=== PATIENT | female | born 1995 | race African-American/Black ===

== ENCOUNTER 2023-10-10 20:06 | Outpatient (CLI) | payer OTHER ==
[~2023-10-10] VITALS: Ht 170.2 cm; Wt 96.8 kg
--- NOTE | 2023-10-10 20:20 | NUR ---
PT PRESENTED TO L&D WITH C/O LEAKING FLUID TODAY ONHER PANTIES. SHE HAD A SPOT ABOUT THE SIZE OF A QUARTER. DENIES CONTRACTIONS OR BLEEDING. PT HAS JUST MOVED HERE AND HAS NOT SEEN A DOCTOR HERE YET BUT SHE HAS AN APPT WITH [facility] ON THRUSDAY AT 10 AM. MONITORS PLACED ON ABD. NO FLUID NOTED ON PERINEUM. NITRAZINE SWAB NEG. PT HAS HX OF PLACENTA PREVIA THAT HAS RESOLVED. HX OF 28 STAT C/S FOR DISTRESS AND PRE-E. VS STABLE. SVE CL/TK/HIGH.
[2023-10-10 21:20] VITALS: TEMP 98.1
[2023-10-10 21:25] VITALS: BP 114/73; PULSE 75; TEMP 98.1
== END 2023-10-10 21:35 | disposition home or self-care (01) ==
LOC: LDRO 20:06
DX: O42.92 Full-term premature rupture of membranes, unspecified as to length of time between rupture and onset of labor (principal); Z3A.37 37 weeks gestation of pregnancy

== ENCOUNTER 2023-10-26 06:27 | Inpatient (IN) | payer OTHER ==
[~2023-10-26] VITALS: Ht 170.2 cm; Wt 104.5 kg
[2023-10-26] VITALS (44 sets, daily range): BP systolic 86–149; BP diastolic 59–99; PULSE 49–87; TEMP 97.8–98.2
--- NOTE | 2023-10-26 06:35 | NUR ---
PT OREINTED TO THE ROOM AND CHANGED INTO GOWN. PT PLACED ON MONITORS. FHT CATAGORY 1. VS WNL. PT DENIES LOF, CX OR VB. PT IS FEELING REGULAR MOVEMENT.
[2023-10-26] MEDS ORDERED: LR 1,000 ML IV SCH (06:45)
[2023-10-26] MEDS ORDERED: LR & Oxytocin 500 ML IV SCH (06:45)
[2023-10-26 07:18] LABS: BASO % 0.7 % (0.0-2.0); EOS % 0.4 % (0.0-4.0); GRAN # 2.6 K/mm3 (1.4-6.5); GRAN % 57.1 % (42.2-75.2); HEMOGLOBIN 12.3 g/dl (12.5-16.0); LYMPH # 1.5 K/mm3 (1.2-3.4); LYMPH % 33.5 % (20.0-51.0); MEAN CELL VOLUME 86 fl (80.0-100.0); MEAN CORPUSCULAR HEMOGLOBIN 30 pg (27-31); MEAN CORPUSCULAR HGB CONC 35 g/dl (33.0-37.0); MEAN PLATELET VOLUME 10.5 fl (7.4-10.4); MONO # 0.4 K/mm3 (0.1-0.6); MONO % 8.1 % (1.7-9.3); PLATELET COUNT 218 K/mm3 (130-400); RED BLOOD COUNT 4.13 M/mm3 (4.10-5.30); REDCELL DISTRIBUTION WIDTH-CV 14.4 % (11.5-14.5)
[2023-10-26 07:19] LABS: HEMATOCRIT 35.4 % (37.0-47.0)
[2023-10-26] MEDS ORDERED: PRENATAL TABLET PO (07:19)
--- NOTE | 2023-10-26 07:37 | NUR ---
DR LOMBARDO ON UNIT AND AT BEDSIDE. SVE 2/-2. HEAD WELL APPLIED TO CERVIX. AROM AT 0740, CLEAR FLUID NOTED. DR LOMBARDO WANTS PIT INCREASED EVERY 20 MIN. BG Q2 HRS. DISCUSSED WITH PT THE RISKS OF TOLAC. PT VERBALLY AGREES TO RISKS. DISCUSSED PLACING A DRY EPIDURAL SO THAT IT WOULD BE ACCESSABLE IN THE CASE OF AN EMERGENCY. PT AGREES TO HAVE EPIDURAL PLACED. PT DISSCUSES SIDE LYING PUSHING AND DELAYED CORD CLAMPING WITH DR LOMBARDO. DR LOMBARDO AGREES TO SIDE LYING PUSHING AND 5 MINUTES OF DELAYED CORD CLAMPING LONG BABY IS STABLE AT .
--- NOTE | 2023-10-26 07:49 | NUR ---
LIANET CALLED FOR EPIDURAL FOR TOLAC. RADHA WANTS A CALL BACK WHEN PITOCIN IS STARTED AND PT IS HAVING CX.
--- NOTE | 2023-10-26 09:32 | NUR ---
CALLED RADHA BACK. PT IS HAVING CX NOW. THEY ARE NOT VERY STRONG AT THIS POINT. LIANET SAID THAT SHE WOULD HEAD THIS WAY.
--- NOTE | 2023-10-26 10:57 | NUR ---
PT HAVING EPIDURAL PLACED DRY FOR TOLAC. 1048- LIANET AT BEDSIDE TO PLACE EPIDURAL CATHETER. PT DECIDED AT THIS TIME THAT SHE WANTED TO GO AHEAD AND HAVE THE EPIDURAL DOSED FOR PAIN MANAGEMENT. PT WAS SEATED ON THE SIDE OF THE BED. O2 AND BP MONITORS ON. 1057- SINGLE SHOT. PT TOLERATED WELL. PT REPOSITIONED TO WEDGE LEFT.
--- NOTE | 2023-10-26 11:00 | NUR ---
PT WAS SEATED FOR EPIDURAL PLACEMENT, DIFFICULTY TRACING CX AND FHT DUE TO MATERNAL POSITION.
[2023-10-26] MEDS ORDERED: ROPivacaine PF 0.2% 200 ML IV ONE (11:02)
[2023-10-26] MEDS ORDERED: ePHEDrine 50 MG/10 ML VIAL IV PRN (11:15)
[2023-10-26] MEDS ORDERED: Naloxone 0.4 MG/ML VIAL IV PRN ×2 (11:15→15:30)
[2023-10-26] MEDS ORDERED: diphenhydrAMINE 25 MG CAP PO PRN (11:15)
[2023-10-26] MEDS ORDERED: Ondansetron 4 MG/2 ML VIAL IV PRN ×2 (11:15→15:30)
[2023-10-26] MEDS ORDERED: diphenhydrAMINE 50 MG/ML 1 ML VIAL IV PRN (11:15)
[2023-10-26] MEDS ORDERED: ePHEDrine 50 MG/10 ML VIAL IV ONE (11:19)
--- NOTE | 2023-10-26 13:00 | NUR ---
DIFFICULTY TRACING FHT PT TURNED SIDE TO SIDE SEVERAL TIMES TRYING TO FIND FHT. 1257 DR LOMBARDO AT BEDSIDE ASSISTING WITH FHT'S. DR LOMBARDO ASKED ABOUT PLACING A FSE. PT DECLINED FSE. WE CONTINUED TO REPOSTITION PT AND THE MONITOR UNTIL FHT WHERE FOUND.
--- NOTE | 2023-10-26 13:30 | NUR ---
RECCURRENT VARIABLES. DR LOMBARDO REMAINS ON UNIT ASSESSING PT AND FHT'S.
--- NOTE | 2023-10-26 14:00 | NUR ---
1400- PT WAS CONTINUING TO HAVE VARIABLES WITH EACH CX. 1404- FHT DID NOT RETURN TO BASELINE AFTER CX. DR LOMBARDO AND THIS RN AT BEDSIDE. PT TURNED SIDE TO SIDE AGAIN, AND FHT DID NOT RESOLVE. PT WAS TURNED INTO HANDS AND KNEES POSITION AND PIT WAS TURNED OFF. FHT DID RECOVER FOR APPROX 3 MINUTES BEFORE DECELING AGAIN. 1424- DR LOMBARDO SAID WE NEED TO GO BACK NOW FOR AN EMERGENCY . FHT'S HAD DECELED INTO THE 60'S. PT WAS PREP'D QUICKLY POSSIBLE. ANESTHESIA WAS ON STANDBY AND AT BEDSIDE WITHIN MINUTES. 1431- PT IN OR. 1435- START OF CESEASRIAN. 1436- BABY WAS DELIVERED BY DOCTOR LOMBARDO.
[2023-10-26] MEDS ORDERED: NS 10 ML IV ONE ×2 (14:53)
[2023-10-26] MEDS ORDERED: Phenylephrine 10 MG/ML VIAL ONE (14:53)
[2023-10-26] MEDS ORDERED: Ketorolac 30 MG/ML VIAL ONE (14:53)
[2023-10-26] MEDS ORDERED: Oxytocin 10 UNITS/ML VIAL ONE (14:53)
[2023-10-26] MEDS ORDERED: Ondansetron 4 MG/2 ML VIAL ONE (14:53)
[2023-10-26] MEDS ORDERED: dexAMETHasone 10 MG/ML VIAL ONE (14:53)
[2023-10-26] MEDS ORDERED: Tranexamic Acid 1,000 MG/10 ML VIAL ONE (15:01)
[2023-10-26] MEDS ORDERED: Loratadine 10 MG TAB PO PRN (15:30)
[2023-10-26] MEDS ORDERED: LR 1,000 ML IV PRN (15:30)
[2023-10-26] MEDS ORDERED: Measles/Mumps/Rubella Virus Vaccine Live w Diluent 0.5 ML VIAL SQ SCH (15:30)
[2023-10-26] MEDS ORDERED: oxyCODONE 5 MG TAB PO PRN (15:30)
[2023-10-26] MEDS ORDERED: Acetaminophen 500 MG TAB PO PRN (15:30)
[2023-10-26] MEDS ORDERED: Magnes Hydrox (MOM) 80 MG/ML 30 ML CUP PO PRN (15:30)
[2023-10-26] MEDS ORDERED: Azithromycin 500 MG in NS 250 ML IV ONE (16:00)
[2023-10-26] MEDS ORDERED: Sennosides/Docusate 8.6-50 MG TAB PO SCH (17:00)
--- NOTE | 2023-10-26 19:00 | NUR ---
PERICARE AND LOVE CATH CARE DONE. PADS AND GOWN CHANGED. BED LINEN CHANGED. ABD BINDER PLACED ON PT. PT TOLERATED WELL.
--- NOTE | 2023-10-26 20:00 | NUR ---
LOVE CATH REMOVED, EPIDURAL CATH REMOVED WITH TIP INTACT, PT AMB TO BR TO VOID 300 CC. PERICARE DONE, PADS AND PANTIES CHANGED. PT THE AMB DOWN THE RILEY AND BACK WITHOUT PROBLEMS.
[2023-10-26] MEDS ORDERED: traZODone 50 MG TAB PO PRN (21:00)
[2023-10-26] MEDS ORDERED: Ibuprofen 800 MG TAB PO SCH (21:26)
[2023-10-27 01:00] VITALS: BP 133/68; PULSE 64; TEMP 98.1
[2023-10-27 04:52] VITALS: BP 119/77; PULSE 51; TEMP 98
[2023-10-27] MEDS ORDERED: MOTRIN 800800 MG/TAB PO (08:22)
[2023-10-27] MEDS ORDERED: PERCOCET 325 MG1 TA2 PO (08:22)
[2023-10-27 08:30] VITALS: BP 125/68; PULSE 61; TEMP 98.1
--- NOTE | 2023-10-27 10:57 | NUR ---
Initial visit attempt; Family resting, Manager Ship left card offering congratulations and God's blessings for the of their son and information regarding the availability of Spiritual Care at our hospital.
--- NOTE | 2023-10-27 12:08 | NUR ---
MOTHER REQUESTS USE OF BREAST PUMP TO HELP FACILITATE MILK PRODUCTION. MOTHER OFFERING BREAST TO INFANT Q 2-3 HOURS. MOTHER SPOKE WITH DIRECTOR OF GOVERNMENT SALES FOR EDUCATION. THIS RN TO TAKE A PUMP INTO MOTHERS ROOM AND EDUCATE HER ON HOW TO USE IT.
[2023-10-27 16:16] VITALS: BP 121/71; PULSE 72; TEMP 98
--- NOTE | 2023-10-27 16:59 | NUR ---
PT TOLERATING PO PAIN MEDS. WALKED HALLWAY X2. INDEPENDENTLY.
[2023-10-27 21:45] VITALS: BP 128/83; PULSE 71; TEMP 98.7
[2023-10-28 08:00] VITALS: BP 124/79; PULSE 69; TEMP 98
== END 2023-10-28 17:00 | disposition home or self-care (01) | DRG 786 ==
LOC: OB 06:27 → LDR 06:27 → OB 07:15
PROVIDERS: ADMIT Obstetrics & Gynecology
PROC: 10D00Z1 Extraction of Products of Conception, Low, Open Approach (ICD-10-PCS; principal; 2023-10-26)
DX: O36.5930 Maternal care for other known or suspected poor fetal growth, third trimester, not applicable or unspecified (principal); O24.12 Pre-existing type 2 diabetes mellitus, in childbirth; Z3A.39 39 weeks gestation of pregnancy; Z37.0 Single live birth; O76 Abnormality in fetal heart rate and rhythm complicating labor and delivery; O99.284 Endocrine, nutritional and metabolic diseases complicating childbirth; E28.2 Polycystic ovarian syndrome; E11.8 Type 2 diabetes mellitus with unspecified complications; O34.211 Maternal care for low transverse scar from previous cesarean delivery
CPT/HCPCS: J0456; J0665; J0690; J1100; J1885; J2371; J2405; J2590; J2795; J7050; J7120